=== PATIENT | female | born 1985 | race Caucasian/White ===

== ENCOUNTER 2022-07-27 12:37 | Emergency (ER) | payer OTHER ==
[~2022-07-27] VITALS: Ht 172.7 cm; Wt 124.7 kg
[2022-07-27] MEDS ORDERED: DOXY-CAPS100 MG PO (14:24)
[2022-07-27] MEDS ORDERED: METRONIDAZOLE500 MG PO (14:24)
[2022-07-27 14:51] VITALS: BP 143/94
== END 2022-07-27 14:58 | disposition home or self-care (01) | DRG 605 ==
LOC: ED 12:37
DX: S90.474A Other superficial bite of right lesser toe(s), initial encounter (principal); W54.0XXA Bitten by dog, initial encounter